=== PATIENT | male | born 1970 | race Hispanic/Latino ===

== ENCOUNTER 2016-11-30 18:08 | Emergency (ER) | payer MEDICAID ==
[2016-11-30 18:29] VITALS: BP 133/73; RESP 18; TEMP 99.5; O2SAT 99
[2016-11-30] MEDS ORDERED: Oxycodone/Acetaminophen 5/325 mg Tab PO STA (19:06)
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
[2016-11-30 19:30] VITALS: PULSE 96
== END 2016-11-30 19:29 | disposition home or self-care (01) ==
LOC: H.ER 18:08
DX: L02.01 Cutaneous abscess of face (principal)

== ENCOUNTER 2016-12-03 01:55 | Emergency (ER) | payer MEDICAID ==
[2016-12-03 02:02] VITALS: BP 134/80; PULSE 91; RESP 17; TEMP 98.3; O2SAT 98
[2016-12-03] MEDS ORDERED: Tmp-Smz 800 mg-160 mg DS Tab PO STA (02:31)
[2016-12-03] MEDS ORDERED: Tmp-Smz 800 mg-160 mg DS Tab ONE (02:35)
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
== END 2016-12-03 02:50 ==
LOC: H.ER 01:55
DX: F32.89 Other specified depressive episodes (principal)

== ENCOUNTER 2016-12-06 09:39 | Emergency (ER) | payer MEDICAID ==
[2016-12-06 09:44] VITALS: BP 144/78; PULSE 113; TEMP 97; O2SAT 99
[2016-12-06 09:45] VITALS: BMI 23.0
--- NOTE | 2016-12-06 10:07 | ED PDOC ---
HPI: General Adult Time Seen by Provider: 12/06/16 09:45 Chief Complaint (Nursing): Med Refill Chief Complaint (Provider): Med Refill History Per: Patient History/Exam Limitations: no limitations Onset/Duration Of Symptoms: Mins (prior to arrival ) Additional Complaint(s): Skip Montoya, 45 year old male presents to the ED for a medication refill. The patient reports he was last seen in the emergency room over the past week for an abscess to his chin. He was prescribed Augmentin, Bactrim, and Percocet but was unable to access these medications. The patient is requesting a medication refill and has no other medical complaints. PMD: Non [facility] Provider Past Medical History Reviewed: Historical Data, Nursing Documentation, Vital Signs Vital Signs: Last Vital Signs Temp 97 F L 12/06/16 09:43 Pulse 113 H 12/06/16 09:43 Resp BP 144/78 12/06/16 09:43 Pulse Ox 99 12/06/16 10:09 - Medical History PMH: Denies: Diabetes, Hepatitis, HIV, HTN, Seizures, Sexually Transmitted Disease - Family History Family History: States: Unknown Family Hx - Social History Current smoker - smoking cessation education provided: Yes Alcohol: Social Drugs: Denies - Home Medications Home Medications: Ambulatory Orders Medication Instructions Recorded Amoxicillin/Clavulanate [Augmentin 1 tab PO BID #20 tab 11/30/16 875 MG-125 MG] Sulfamethoxazole/Trimethoprim 1 each PO BID #20 tablet 11/30/16 [Bactrim 400-80 mg Tablet] oxyCODONE/Acetaminophen [Percocet 1 ea PO Q6H PRN #10 tab 11/30/16 5/325 mg Tab] Amoxicillin/Clavulanate [Augmentin 1 tab PO BID #20 tab 12/06/16 875 MG-125 MG] Naproxen [Naprosyn] 500 mg PO Q12H #20 tab 12/06/16 Sulfamethoxazole/Trimethoprim 1 tab PO BID #20 tab 12/06/16 [Bactrim DS 800 mg-160 mg] - Allergies Allergies/Adverse Reactions: Allergies Allergy/AdvReac Type Severity Reaction Status Date / Time No Known Allergies Allergy Verified 11/30/16 18:26 Review of Systems ROS Statement: Except As Marked, All Systems Reviewed And Found Negative Skin: Positive for: Other (medication refill for previous abscess reported to chin ) Physical Exam - Reviewed Nursing Documentation Reviewed: Yes Vital Signs Reviewed: Yes - Physical Exam Appears: Positive for: Well Head Exam: Positive for: ATRAUMATIC, NORMAL INSPECTION, NORMOCEPHALIC Skin: Positive for: Normal Color (no abscess noted), Warm, Dry - ECG O2 Sat by Pulse Oximetry: 99 (RA) Pulse Ox Interpretation: Normal Medical Decision Making Medical Decision Making: Impression: Medication Refill Plan: * Explained to patient that will refill antibiotics and prescribe non- controlled substances for pain medications, but will not refill Percocet. Patient agreed to treatment plan. Scribe Attestation: Documented by Lissette Viramontes, acting as a scribe for Marvin Gutierres MD. Provider Scribe Attestation: All medical record entries made by the Scribe were at my direction and personally dictated by me. I have reviewed the chart and agree that the record accurately reflects my personal performance of the history, physical exam, medical decision making, and the department course for this patient. I have also personally directed, reviewed, and agree with the discharge instructions and disposition. Disposition - Clinical Impression Clinical Impression: Abscess - Disposition Referrals: [facility] [place] [Outside] Disposition Time: 09:45 Condition: FAIR Prescriptions: Amoxicillin/Clavulanate [Augmentin 875 MG-125 MG] 1 tab PO BID #20 tab Naproxen [Naprosyn] 500 mg PO Q12H #20 tab Sulfamethoxazole/Trimethoprim [Bactrim DS 800 mg-160 mg] 1 tab PO BID #20 tab Instructions: Medicine Refill (ED) Forms: [facility] ([place])
== END 2016-12-06 09:59 | disposition home or self-care (01) ==
LOC: H.ER 09:39
DX: Z76.0 Encounter for issue of repeat prescription (principal)